=== PATIENT | male | born 1980 | race Two or more races ===

== ENCOUNTER → 2019-08-11 | Outpatient (REF) | payer OTHER ==
[2019-08-11 10:54] LABS: SEMEN APPEARANCE OPAQUE (OPAQUE)
[2019-08-11 10:55] LABS: SEMEN VISCOSITY VISCOUS (LIQUID); SPERM CONCENTRATION 111.1 M/ml (>=15.0); WBC CONCENTRATION <=1 M/ml (<=1 M/ml)
== END ==
LOC: M LAB REF 10:49
PROVIDERS: ATTEND Physician Assistant
DX: Z98.52 Vasectomy status (principal)

== ENCOUNTER 2022-03-29 11:37 | Emergency (ER) | payer OTHER ==
[~2022-03-29] VITALS: Ht 185.4 cm; Wt 76.1 kg
[2022-03-29 11:38] VITALS: BP 117/79
[2022-03-29] MEDS ORDERED: CIPR0.3S6 (11:49)
[2022-03-29] MEDS ORDERED: ZIRG0.152 OP ×2 (11:49→12:51)
[2022-03-29] MEDS ORDERED: VALA1TAB5 PO (12:51)
== END 2022-03-29 12:58 | disposition home or self-care (01) ==
LOC: M ED 11:37
DX: B00.52 Herpesviral keratitis (principal); F12.10 Cannabis abuse, uncomplicated

== ENCOUNTER → 2022-04-21 | Outpatient (REF) | payer OTHER ==
[~2022-04-21] MED LIST: CIPR0.3S6; VALA1TAB5 PO; ZIRG0.152 OP
[2022-04-21 14:55] LABS: SEMEN APPEARANCE OPAQUE (OPAQUE); SEMEN VISCOSITY LIQUID (LIQUID); SEMEN pH 8.5 (7.0-8.0); WBC CONCENTRATION <=1 M/ml (<=1 M/ml)
== END ==
LOC: M LAB REF 14:38
PROVIDERS: ATTEND Physician Assistant
DX: Z31.41 Encounter for fertility testing (principal)

== ENCOUNTER → 2022-10-27 | Outpatient (REF) | payer OTHER ==
[~2022-10-27] MED LIST changes: +CIPR0.3S37; -CIPR0.3S6
== END ==
LOC: M LAB REF 17:52
PROVIDERS: ATTEND Family Medicine
DX: N23 Unspecified renal colic (principal)

== ENCOUNTER 2024-06-15 17:06 | Emergency (ER) | payer OTHER ==
[~2024-06-15] VITALS: Ht 185.4 cm; Wt 72.3 kg
[2024-06-15] MEDS ORDERED: TERB250T91 (17:12)
[2024-06-15] MEDS ORDERED: ZOLP10TA2 (17:12)
[2024-06-15 18:18] LABS: BASO # 0.1 10^3/uL (0.0-0.2); BASO % 1.1 % (0.0-1.0); EOS # 0.2 10^3/uL (0.0-0.5); EOS % 3.8 % (0.0-3.0); HEMATOCRIT 46.7 % (42.0-52.0); HEMOGLOBIN 16.2 g/dl (13.5-17.5); LYMPH # 1.8 10^3/uL (1.5-5.0); LYMPH % 29.7 % (24.0-44.0); MEAN CORPUSCULAR HEMOGLOBIN 30.9 pg (27.0-33.0); MEAN CORPUSCULAR HGB CONC 34.7 g/dl (32.0-36.5); MEAN CORPUSCULAR VOLUME 89.1 fl (80.0-96.0); MONO # 0.4 10^3/uL (0.0-0.8); MONO % 6.9 % (2.0-8.0); NEUTROPHILS # 3.6 10^3/uL (1.5-8.5); NEUTROPHILS % 58.3 % (36.0-66.0); PLATELET COUNT, AUTOMATED 229 10^3/uL (150-450); RED BLOOD COUNT 5.24 10^6/uL (4.30-6.10); WHITE BLOOD COUNT 6.1 10^3/uL (4.0-10.0)
[2024-06-15 18:48] LABS: CK-MB VALUE MASS < 1.0 NG/ML (<3.6)
[2024-06-15 18:57] LABS: BLOOD UREA NITROGEN 18 MG/DL (9-23); CALCIUM LEVEL 8.8 MG/DL (8.5-10.1); CARBON DIOXIDE LEVEL 31 MMOL/L (20-31); CHLORIDE LEVEL 102 MMOL/L (98-107); CREATININE FOR GFR 0.84 MG/DL (0.70-1.30); GLOMERULAR FILTRATION RATE > 90.0 (>60); GLUCOSE, FASTING 102 MG/DL (60-100); MAGNESIUM LEVEL 2.2 MG/DL (1.8-2.4); SODIUM LEVEL 142 MMOL/L (136-145)
[2024-06-15 19:02] LABS: CPK CREATINE PHOSPHOKINASE 67 U/L (46-171); MB/CK RELATIVE INDEX 1.49 (< OR =4)
[2024-06-15 20:02] LABS: CK-MB VALUE MASS < 1.0 NG/ML (<3.6)
[2024-06-15 20:03] LABS: CPK CREATINE PHOSPHOKINASE 70 U/L (46-171); MB/CK RELATIVE INDEX 1.42 (< OR =4)
[2024-06-15] MEDS ORDERED: ISOVUE-370 76% 100ML VIAL As Ordered ONE (20:47)
[2024-06-15 22:39] LABS: CK-MB VALUE MASS < 1.0 NG/ML (<3.6)
[2024-06-15 22:57] LABS: CPK CREATINE PHOSPHOKINASE 61 U/L (46-171); MB/CK RELATIVE INDEX 1.63 (< OR =4)
[2024-06-15 23:00] VITALS: TEMP 96.8
[2024-06-16] VITALS: BP 110/73; O2SAT 98
== END 2024-06-16 00:14 | disposition home or self-care (01) ==
LOC: M ED 17:06
DX: R07.9 Chest pain, unspecified (principal); Z87.442 Personal history of urinary calculi
CPT/HCPCS: 70450; 71045; 71275; 80048; 82550; 82553; 83735; 84484; 85025; 93005; 93041; 94760; 99285; Q9967

== ENCOUNTER 2025-01-14 21:52 | Emergency (ER) | payer OTHER ==
[~2025-01-14] VITALS: Ht 185.4 cm; Wt 74.9 kg
[~2025-01-14 21:52] MED LIST changes: +TERB250T91; +ZOLP10TA11
[2025-01-14 23:46] VITALS: BP 108/69; TEMP 96.7; O2SAT 98
== END 2025-01-15 00:08 | disposition home or self-care (01) ==
LOC: M ED 21:52
DX: R55 Syncope and collapse (principal); F12.10 Cannabis abuse, uncomplicated; S00.01XA Abrasion of scalp, initial encounter; W22.8XXA Striking against or struck by other objects, initial encounter; Y92.9 Unspecified place or not applicable; Y93.89 Activity, other specified; Y99.9 Unspecified external cause status; G47.9 Sleep disorder, unspecified; Z79.899 Other long term (current) drug therapy